=== PATIENT | male | born 1990 | race African-American/Black ===

== ENCOUNTER 2024-08-25 16:52 | Emergency (ER) | payer BC, SELFPAY ==
[2024-08-25 16:56] VITALS: BP 154/88; PULSE 104; TEMP 37.1; O2SAT 97; BMI 41.1
--- NOTE | 2024-08-25 17:11 | PC.NURSE ---
pt is able to bend at the knuckles with no problem. reports he has feeling to this injured finger. area cleansed with hibiclens and suture tray set up.
[2024-08-25] MEDS: LIDOCAINE HCL 1% 100 MG/10 ML MDV INJ (17:14)
--- NOTE | 2024-08-26 07:44 | ED.GENADUL1 ---
HPI HPI - General Adult General Chief complaint: Skin/Abscess/Foreign Body Stated complaint: FINGER LACERATION Time Seen by Provider: 08/25/24 17:00 Source: patient Mode of arrival: walk-in History of Present Illness HPI narrative: The patient presented to us with a laceration to the index finger of the left hand after he was washing some new steak knife set that he just got as a [place] gift No other injuries and the patient tetanus booster is 5 years old Related Data Allergies Allergy/AdvReac Type Severity Reaction Status Date / Time No Known Drug Allergies Allergy Verified 08/25/24 17:00 Opioid HPI Opioid Management Most Recent Opioid Data: No Data to Display Review of Systems ROS Status of ROS 10 or more systems reviewed and unremarkable except as noted in history and below PFSH PFSH Social History Little interest or pleasure in doing things: not at all Feeling down, depressed, or hopeless: not at all Exam Narrative Exam Narrative: Nurses notes and vital signs reviewed and patient is not hypoxic. Left hand examination: Patient on the dorsum of the left index finger just proximal to the proximal interphalangeal joint the patient have a laceration that is longitudinal and 2 cm linear. Not exposed to any tendons and the patient have full range of movement to his index finger General: Well-appearing and in no apparent distress. Skin: Warm, dry, no pallor noted. No rash. Head: Normocephalic, atraumatic. Neck: Supple, non-tender. Eye: Pupils are equal, round and EOMI. No scleral icterus. Ears, Nose, Mouth, and Throat: TM are clear, no nasal mucosal hypertrophy. Oral mucosa is moist, no posterior oropharynx erythema, uvula is mid-line Cardiovascular: Regular Rate and Rhythm without murmur, gallop or rub. Respiratory: No accessory muscle use or respiratory distress. Lungs are clear to auscultation, no wheezing, rales or rhonchi Chest Wall: no tenderness Back: No midline thoracic or lumbar vertebral tenderness. No CVA tenderness GI: Abdomen is soft, non-distended. Normal bowel sounds. No masses appreciated. No tenderness to palpation. No rebound, guarding, or rigidity noted. Neurological: A&O x4. No cranial nerve dysfunction observed. No truncal ataxia. Moves all extremities. Sensation intact. Psychiatric: Cooperative and interactive. Normal mood and affect. Constitutional Vital Signs, click to edit/add: Last Vital Signs Temp 98.8 F 08/25/24 16:56 Pulse 104 H 08/25/24 16:56 Resp 16 08/25/24 16:56 BP 154/88 H 08/25/24 16:56 Pulse Ox 97 08/25/24 16:56 O2 Del Method Room Air 08/25/24 16:56 Course Vital Signs Vital signs: Vital Signs Temperature 98.8 F 08/25/24 16:56 Pulse Rate 104 H 08/25/24 16:56 Respiratory Rate 16 08/25/24 16:56 Blood Pressure 154/88 H 08/25/24 16:56 Pulse Oximetry 97 08/25/24 16:56 Oxygen Delivery Method Room Air 08/25/24 16:56 Temperature 98.8 F 08/25/24 16:56 Pulse Rate 104 H 08/25/24 16:56 Respiratory Rate 16 08/25/24 16:56 Blood Pressure 154/88 H 08/25/24 16:56 Pulse Oximetry 97 08/25/24 16:56 Oxygen Delivery Method Room Air 08/25/24 16:56 Medical Decision Making MDM Narrative Medical decision making narrative: After cleaning the laceration thoroughly the patient had a finger bloc with 3 cc of 1% lidocaine injected at the metacarpophalangeal joint of the second finger The patient then had 6 stitches of 4-0 Prolene applied Finger splint applied in addition to dressing Patient removed the tissue after 5 to 7 days The patient tetanus booster with 5 years old and I offered him a booster but he opted not to which she is okay and he have a clean wound The patient is to follow up with primary care physician in next 2-3 days or to return to the emergency department should any of the signs or symptoms worsen or new symptoms develop. The patient agrees with the following Diagnosis and Treatment plan and the patient will be discharged home. Discharge Plan Discharge Chief Complaint: Skin/Abscess/Foreign Body Clinical Impression: Laceration of finger Patient Disposition: Home, Self-Care Time of Disposition Decision: 17:24 Condition: Good Print Language: [place] Instructions: Laceration (DC) Referrals: Physician,Non-Staff, [Primary Care Provider] - 1 week Discharge Date/Time: 08/25/24 17:40
== END 2024-08-25 17:40 | disposition home or self-care (01) ==
PROVIDERS: Emergency Provider Emergency Medicine
DX: S61.211A Laceration without foreign body of left index finger without damage to nail, initial encounter (principal); W26.0XXA Contact with knife, initial encounter
CPT/HCPCS: 12001; 99283